=== PATIENT | female | born 1960 | race Two or more races ===

== ENCOUNTER 2018-10-23 10:32 | Outpatient (CLI) | payer OTHER | END 2018-10-23 10:52 | disposition home or self-care (01) | LOC: SONOGRAMA 10:32 | DX: E04.2 Nontoxic multinodular goiter (principal) ==

== ENCOUNTER 2020-12-15 14:20 | Outpatient (CLI) | payer OTHER | END 2020-12-15 14:38 | disposition home or self-care (01) | LOC: RAD 14:20 | PROVIDERS: ATTEND Orthopaedic Surgery | DX: M25.561 Pain in right knee (principal) ==